=== PATIENT | male | born 1975 | race Caucasian/White ===

== ENCOUNTER 2021-06-08 22:38 | Emergency (ER) | payer SELFPAY ==
[~2021-06-08] VITALS: Ht 185.4 cm; Wt 88.5 kg
[2021-06-08 22:43] VITALS: BP 138/93
--- NOTE | 2021-06-08 22:43 | NUR ---
PATRICIA HOSKINS TAKEN TO BED #4
--- NOTE | 2021-06-08 22:50 | NUR ---
TO BED 4 BIBA FROM "STREETS" WITH C/O OLIVARES X 2 HOURS. MEDHX- METH ABUSE NKA
[2021-06-08] MEDS: NACL 0.9% 2,000 ML IV ONE (23:17)
--- NOTE | 2021-06-08 23:20 | NUR ---
BLOOD DRAWN VIA IV START. BLOOD GIVEN TO BING [place] TECH
[2021-06-08 23:25] LABS: BASOPHILS # (AUTO) 0.1 K/uL (0.00-0.22); BASOPHILS % (AUTO) 0.7 % (0.0-2.0); EOSINOPHILS % (AUTO) 0.4 % (0.0-4.0); HEMATOCRIT 42.7 % (36-52); HEMOGLOBIN 14.3 g/dL (12.0-18.0); LYMPHOCYTES # (AUTO) 0.2 K/uL (2.0-11.5); LYMPHOCYTES % (AUTO) 1.7 % (20.5-51.1); MEAN CORPUSCULAR HEMOGLOBIN 29 pg (27-31); MEAN CORPUSCULAR HGB CONC 34 g/dL (33-37); MEAN CORPUSCULAR VOLUME 86.5 fL (80-94); MONOCYTES # (AUTO) 0.1 K/uL (0.8-1.0); MONOCYTES % (AUTO) 0.5 % (1.7-9.3); NEUTROPHILS % (AUTO) 96.7 % (42.2-75.2); PLATELET COUNT (AUTO) 155 K/uL (140-450); RED BLOOD CELL COUNT(AUTO) 4.94 MIL/uL (4.20-6.10); RED CELL DISTRIBUTION WIDTH 14.1 % (11.6-13.7); WHITE BLOOD COUNT (AUTO) 10.3 K/uL (4.8-10.8)
[2021-06-08 23:37] LABS: ALBUMIN 3.2 g/dL (3.4-5.0); ANION GAP 12.6 (8-16); ASPARTATE AMINOTRANSFERASE 101 U/L (15-37); CHLORIDE 105 mmol/L (98-107); CREATININE 1.3 mg/dL (0.6-1.3); GFR ARICAN-AMERICAN 76 mL/min (>90); GLUCOSE 149 mg/dL (74-106); SODIUM SERUM 140 mmol/L (136-145); TOTAL BILIRUBIN 0.4 mg/dL (0.0-1.0); UREA NITROGEN, BLOOD 14 mg/dL (7-18)
[2021-06-08 23:39] LABS: POTASSIUM 2.6 mmol/L (3.5-5.1)
[2021-06-09] MEDS: KCL 20 MEQ/WATER INJ PREMIX 200 ML IV ONE (00:14)
[2021-06-09] MEDS: POTASSIUM CHLORIDE 20% 40 MEQ/15 ML UDC PO ONE (00:15)
--- NOTE | 2021-06-09 00:55 | NUR ---
RETURNED FROM CT
--- NOTE | 2021-06-09 02:00 | NUR ---
RESTING IN BED WITH EYES CLOSED. RESPIRATIONS REGULAR AND UNLABORED
[2021-06-09] MEDS ORDERED: POTA-599 PO (04:55)
[2021-06-09] MEDS: MAG SULF 2000 MG/WATER PREMIX 50 ML IV ONE (05:20)
[2021-06-09 06:00] VITALS: BP 128/74
--- NOTE | 2021-06-09 07:20 | NUR ---
RECEIVED REPORT FROM MARLI MARCIAL. TRANSFER OF CARE AT THIS TIME. PT RESTING IN BED WITH EVEN AND UNLABORED RESPIRATIONS. IV FLUIDS INFUSING. VSS. WILL CONTINUE TO MONITOR
--- NOTE | 2021-06-09 08:19 | NUR ---
PT PROVIDED WITH MEAL, BUS PASS, AND HOMELESS RESOURCES PRIOR TO DISCHARGE.
--- NOTE | 2021-06-09 08:21 | NUR ---
Patient discharged with v/s stable. Written and verbal after care instructions given and explained. Patient alert, oriented and verbalized understanding of instructions. Ambulatory with steady gait. All questions addressed prior to discharge. ID band removed. Patient advised to follow up with PMD. Rx of POTASSIUM CHLORIDE given. Patient educated on indication of medication including possible reaction and side effects. Opportunity to ask questions provided and answered.
== END 2021-06-09 08:21 | disposition home or self-care (01) ==
LOC: MED 22:38
DX: E86.0 Dehydration (principal); E87.6 Hypokalemia; E83.42 Hypomagnesemia; R00.0 Tachycardia, unspecified; F17.210 Nicotine dependence, cigarettes, uncomplicated; Z79.899 Other long term (current) drug therapy
CPT/HCPCS: 36415; 70450; 71045; 80053; 83735; 84132; 84484; 85025; 93005; 96361; 96365; 96366; 96367; 99285; G0482; J3475; J3480; J7030; Q0092

== ENCOUNTER 2021-09-12 18:25 | Emergency (ER) | payer SELFPAY ==
[~2021-09-12] VITALS: Ht 188 cm; Wt 86.2 kg
[~2021-09-12 18:25] MED LIST: POTA-599 PO
[2021-09-12 18:27] VITALS: BP 128/86
[2021-09-12] MEDS ORDERED: KETOROLAC 30 MG/ML VIAL IM ONE (20:40)
--- NOTE | 2021-09-12 20:40 | NUR ---
MEDICATED PER ERMDS ORDER, TOLERATED WELL.
[2021-09-12] MEDS ORDERED: NAPR-54 PO (21:16)
[2021-09-12 21:35] VITALS: BP 128/86
== END 2021-09-12 21:35 | disposition home or self-care (01) ==
LOC: MED 18:25
DX: S20.211A Contusion of right front wall of thorax, initial encounter (principal); W19.XXXA Unspecified fall, initial encounter; Y93.89 Activity, other specified; Y92.89 Other specified places as the place of occurrence of the external cause; Y99.8 Other external cause status
CPT/HCPCS: 71045; 96372; 99283; J1885